=== PATIENT | male | born 1930 | race Caucasian/White ===

== ENCOUNTER 2018-12-04 09:33 | Emergency (ER) | payer MEDICARE, OTHER ==
[2018-12-04 10:14] LABS: #Eosinphils 0.1 thou/uL (0.0-0.7); #Lymphocytes 0.6 thou/uL (1.20-3.40); #Monocytes 0.5 thou/uL (0.11-0.59); #Neutrophils 7.3 thou/uL (1.40-6.50); %Basophils 0.5 % (0.0-1.0); %Lymphocytes 7.4 % (21.0-51.0); %Monocytes 6.2 % (0.0-10.0); %Neutrophils 84.9 % (42.0-75.0); Hemoglobin 14.8 g/dL (14.0-18.0); Mean Corpuscular HGB CONC 34.5 g/dL (32.0-36.0); Mean Corpuscular Hemoglobin 34.3 pg (27.0-31.0); Mean Corpuscular Volume 99.5 fL (78.0-98.0); Mean Platelet Volume 8.1 fL (7.4-10.4); Platelet Count 152 thou/uL (130-400); RBC Distribution Width 12.8 % (11.5-14.5); Red Blood Cell (RBC) Count 4.31 mill/uL (4.70-6.10); White Blood Cell (WBC) Count 8.6 thou/uL (4.8-10.8)
[2018-12-04 10:22] LABS: ALT (SGPT) 10 U/L (8-55); AST (SGOT) 9 U/L (5-34); Albumin 3.9 g/dL (3.4-4.8); Alkaline Phosphatase 67 U/L (40-110); Anion Gap 15 mmol/L (10-20); BUN (Urea Nitrogen) 22 mg/dL (8.4-25.7); Calc. Creatinine Clearance 0 mL/min (70-130); Calcium 8.7 mg/dL (7.8-10.44); Carbon Dioxide 18 mmol/L (23-31); Chloride 105 mmol/L (98-107); Estimated GFR-MDRD 45; Globulin 2.2 g/dL (2.4-3.5); Glucose 236 mg/dL (83-110); Potassium 3.8 mmol/L (3.5-5.1); Protein, Total 6.1 g/dL (5.8-8.1); Sodium 134 mmol/L (136-145)
--- NOTE | 2018-12-04 10:51 | RAD ---
CHEST 1 VIEW: Date: 12/04/18 HISTORY: Weakness. COMPARISON: None. FINDINGS: Scattered linear opacities in both lower lobes with some slight components in the right lower lobe. N o pneumothorax. Pulmonary arteries are mildly dilated. Heart size upper limits of normal. No acute osseous abnormality. IMPRESSION: 1. 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 Follow-up 2 views of the chest recommended in full inspiration. 2. Dilated pulmonary arteries can be seen in pulmonary arterial hypertension. 3. Findings of chronic bronchitis. POS: [facility]
== END 2018-12-04 12:23 ==
LOC: ERS 09:33
DX: E86.0 Dehydration (principal); R53.1 Weakness; E11.9 Type 2 diabetes mellitus without complications; J44.9 Chronic obstructive pulmonary disease, unspecified; Z87.891 Personal history of nicotine dependence; Z79.4 Long term (current) use of insulin; Z79.899 Other long term (current) drug therapy; Z79.51 Long term (current) use of inhaled steroids; Z79.52 Long term (current) use of systemic steroids; Z79.82 Long term (current) use of aspirin
CPT/HCPCS: 36415; 71045; 80053; 84484; 85025; 93005; 94760; 96360